=== PATIENT | male | born 1945 | race Caucasian/White ===

== ENCOUNTER → 2020-04-15 | Outpatient (CLI) | payer OTHER | LOC: MRI 10:41 | DX: M47.817 Spondylosis without myelopathy or radiculopathy, lumbosacral region (principal); M51.36 Other intervertebral disc degeneration, lumbar region; M47.815 Spondylosis without myelopathy or radiculopathy, thoracolumbar region; M48.061 Spinal stenosis, lumbar region without neurogenic claudication; M25.78 Osteophyte, vertebrae ==

== ENCOUNTER → 2020-04-20 | Outpatient (CLI) | payer OTHER | LOC: MRI 11:27 | DX: M47.814 Spondylosis without myelopathy or radiculopathy, thoracic region (principal); M47.812 Spondylosis without myelopathy or radiculopathy, cervical region; R26.81 Unsteadiness on feet; N28.1 Cyst of kidney, acquired; M48.02 Spinal stenosis, cervical region ==